=== PATIENT | male | born 1975 | race Caucasian/White ===

== ENCOUNTER 2017-05-06 23:29 | Emergency (ER) | payer BC, OTHER ==
[2017-05-06 23:41] VITALS: BP 165/97
[2017-05-06] MEDS ORDERED: Lidocaine 1% 10 ML MDV INJECT ONE (23:49)
[2017-05-06] MEDS ORDERED: Doxycycline 100 MG Cap PO ONE (23:49)
--- NOTE | 2017-05-06 23:51 | EDM.PDOC ---
ED HPI GENERAL MEDICAL PROBLEM - General Chief Complaint: Wound Recheck Stated Complaint: HAD SURGERY AND THE WOUND IS OPEN Time Seen by Provider: 05/06/17 23:45 Source of Information: Reports: Patient History Limitations: Reports: No Limitations - History of Present Illness INITIAL COMMENTS - FREE TEXT/NARRATIVE: 41-year-old male presents to the ED with wound dehiscence of surgical wound right lateral neck. Patient had a sebaceous cyst or tumor removed from this area on Wednesday, May 03. Tonight the wound was quite puffy and when he touched it it opened up and drained a large amount of serosanguineous fluid. The wound unfortunately dehisced in its entire length 2.5 cm. It is gaping approximately 6 mm. Therefore the wound will need to be reclosed with sutures. 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 Neck Pain Score (Numeric/FACES): 6 - Related Data Allergies Allergy/AdvReac Type Severity Reaction Status Date / Time NSAIDS (Non-Steroidal AdvReac Diarrhea Verified 05/06/17 23:41 Anti-Inflamma tramadol AdvReac Headache Verified 05/06/17 23:41 Home Meds: Home Meds Dextroamphetamine/Amphetamine [Amphetamine Salts] 15 mg PO DAILY 07/23/14 [ History] Lisdexamfetamine [Vyvanse] 30 mg PO DAILY 07/23/14 [History] Cholecalciferol (Vitamin D3) [Vitamin D3] 0 mg PO DAILY 06/25/15 [History] oxyCODONE HCl [Oxycodone HCl] 5 mg PO Q6H PRN 06/25/15 [History] Doxycycline [Vibramycin] 100 mg PO Q12HR #14 cap 05/06/17 [Rx] Past Medical History Other HEENT History: hearing loss L) ear. 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 Genitourinary History: Reports: Renal Calculus Musculoskeletal History: Reports: Other (See Below) Other Musculoskeletal History: vertebra fx Neurological History: Reports: Migraines Psychiatric History: Reports: ADHD, Anxiety, Depression Dermatologic History: Reports: Other (See Below) Other Dermatologic History: benign tumor removed from neck - Past Surgical History Musculoskeletal Surgical History: Reports: Shoulder Replacement, Other (See Below) Other Musculoskeletal Surgeries/Procedures:: knee surgery Social & Family History - Tobacco Use Smoking Status *Q: Current Every Day Smoker Years of Tobacco use: 20 Packs/Tins Daily: 0.5 Used Tobacco, but Quit: No Second Hand Smoke Exposure: Yes - Caffeine Use Caffeine Use: Reports: Soda - Alcohol Use Days Per Week of Alcohol Use: 0 Number of Drinks Per Day: 0 Total Drinks Per Week: 0 - Recreational Drug Use Recreational Drug Use: No Drug Use in Last 12 Months: No - Living Situation & Occupation Living situation: Reports: Occupation: Employed ED ROS GENERAL - Review of Systems Review Of Systems: See Below Constitutional: Denies: Fever, Chills, Malaise, Fatigue, Decreased Appetite, Weight Loss HEENT: Reports: No Symptoms Respiratory: Reports: No Symptoms Cardiovascular: Reports: No Symptoms Endocrine: Reports: No Symptoms GI/Abdominal: Reports: No Symptoms : Reports: No Symptoms ED EXAM, SKIN/RASH Exam: See Below Exam Limited By: No Limitations General Appearance: Alert, WD/WN, Anxious, Mild Distress Head: Atraumatic, Normocephalic Neck: Other (Surgical wound right lateral neck horizontal incision open in its length of 2.5 cm. Underlying Vicryl sutures are noted. Wound is gaping approximate 6 mm in its entirety.) Respiratory/Chest: No Respiratory Distress, Lungs Clear, Normal Breath Sounds, No Accessory Muscle Use, Chest Non-Tender Cardiovascular: Normal Peripheral Pulses ( It appears clear without any active drainage at this time), Regular Rate, Rhythm, No Edema, No Gallop, No Murmur ED WOUND PROCEDURES - Laceration/Wound Repair Right Middle Lateral Neck Laceration/Wound Length In cm: 2.5 Appearance: Subcutaneous (Surgical wound that has dehisced was repaired.), Clean Distal NVT: Neuro & Vascular Intact Anesthetic Type: Local Local Anesthesia - Lidocaine (Xylocaine): 1% Plain Skin Prep: Chlorhexidine (Hibiciens), Saline Wound Exploration, Debridement, Revision: Wound Explored (Removed part of the underlying Vicryl subcutaneous running suture as it was hanging the wound.) Suture Size: 4-0 # of Sutures: 6 Suture Type: Nylon, Interrupted, Running Course - Vital Signs Last Recorded V/S: Last Vital Signs Temp 36.1 C 05/06/17 23:36 Pulse 100 05/06/17 23:36 Resp 18 05/06/17 23:36 BP 165/97 H 05/06/17 23:36 Pulse Ox 96 05/06/17 23:36 - Orders/Labs/Meds Meds: Medications Discontinued Medications Generic Name Dose Route Start Last Admin Trade Name Colton PRN Reason Stop Dose Admin Doxycycline Hyclate 200 mg 05/06/17 23:49 05/06/17 23:53 Vibramycin PO 05/06/17 23:50 200 mg ONETIME ONE Administration Lidocaine HCl 10 ml 05/06/17 23:49 05/06/17 23:53 Xylocaine 1% INJECT 05/06/17 23:50 10 ml ONETIME ONE Administration - Radiology Interpretation Free Text/Narrative:: Evaluation in the emergent tonight in regards to wound breakdown which we call dehiscence of the surgical wound right lateral neck. Drained a copious quantity of serosanguineous material which is not uncommon for fluid to collect under a surgical wound in the neck. Since the wound is open in its entirety and gaping approximate 5 mm or more it was sutured under local anesthetic 5 to provide wound closure. He will be covered with antibiotics to prevent secondary wound infection. Doxycycline 100 mg twice daily for the next 7 days. Follow-up as needed. Sutures will need to be removed in 10 days' time. - Re-Assessments/Exams Free Text/Narrative Re-Assessment/Exam: 05/07/17 00:43 2.5 cm laceration right lateral neck was cleansed and then sutured under local anesthetic 6 with 4-0 Ethilon suture. He'll be covered with antibiotic doxycycline 200 mg or given in the ED and he'll take 100 mg twice daily for another 7 days to prevent secondary wound infection. Adequate pain medication at home .Sutures will need to be removed in 10 days' time. Departure - Departure Time of Disposition: 00:41 Disposition: Home, Self-Care 01 Condition: Fair Clinical Impression: Wound dehiscence, surgical Qualifiers: Encounter type: initial encounter Qualified Code(s): T81.31XA - Disruption of external operation (surgical) wound, not elsewhere classified, initial encounter - Discharge Information Prescriptions: Doxycycline [Vibramycin] 100 mg PO Q12HR #14 cap Referrals: Tiara Murcia NP [Primary Care Provider] - Forms: ED Department Discharge Additional Instructions: Evaluation in the emergent tonight in regards to wound dehiscence or surgical wound breakdown right lateral neck. Had a tumor or sebaceous cyst removed from this area on Wednesday, May 03. Tonight the wound opened up and drained serosanguineous fluid which is often a collection of blood and fluid under surgical wound. His open almost its entire length which is 2.5 cm. Decision made therefore to reclose the wound with external sutures. Was anesthetized and sutured 6 with 4-0 Ethilon sutures to provide wound closure. You were given initial dose of antibiotic doxycycline 200 mg in the ED and you should fill prescription tomorrow for same medication 100mg tablet twice daily for another 7 days to prevent secondary wound infection. Continue Tylenol 650 mg as needed every 6 hours for pain relief. Sutures will need to be removed in 10 days ' time. Apply topical antibiotic such as bacitracin or Polysporin to the wound every night at bedtime. Showering is okay.
== END 2017-05-07 00:54 | disposition home or self-care (01) ==
LOC: JD.ED 23:29
DX: T81.31XA Disruption of external operation (surgical) wound, not elsewhere classified, initial encounter (principal); F41.9 Anxiety disorder, unspecified; F32.9 Major depressive disorder, single episode, unspecified; F17.210 Nicotine dependence, cigarettes, uncomplicated; F90.9 Attention-deficit hyperactivity disorder, unspecified type; Z98.890 Other specified postprocedural states; Z96.612 Presence of left artificial shoulder joint; Z87.442 Personal history of urinary calculi; Z79.899 Other long term (current) drug therapy; Z88.8 Allergy status to other drugs, medicaments and biological substances; Z88.5 Allergy status to narcotic agent
CPT/HCPCS: 12020; 99283; A9270

== ENCOUNTER 2018-02-22 06:53 | Day surgery (SDC) | payer BC, OTHER ==
--- NOTE | 2018-02-16 00:10 | HP ---
DATE OF ADMISSION: 02/22/18 HISTORY OF PRESENT ILLNESS: This is the second orthopedic outpatient admission for surgery for this 42-year- old male who is being admitted with severe pain of the left wrist with positive loss of pail bailer strength and positive nerve conduction evaluation for a left median nerve compressive neuropathy - carpal tunnel syndrome. The patient has had continuous and increasing pain to the point now where he has lost significant pail bailer strength and has been scheduled for the surgical procedure. PAST MEDICAL HISTORY: Allergies: Tramadol and NSAIDs. CURRENT MEDICATIONS: Include Lisinopril, hydrochlorothiazide, Cymbalta, Adderall. He is on chronic pain oxycodone treatment. PAST MEDICAL HISTORY: The patient has a history of colitis, also right shoulder pain following several surgeries, high blood pressure. PAST SURGICAL HISTORY: Positive. He has had positive right carpal tunnel syndrome surgery, right knee surgery, left knee surgery, right shoulder surgery on multiple occasions. Notes no specific or significant anesthesia problems or complications. He has a negative bleeding history, negative blood clot history. SOCIAL HISTORY: The patient is a smoker of 1 pack per day. Alcohol: He denies using alcohol. PHYSICAL EXAMINATION: GENERAL: Today, reveals a well-developed, well-nourished 42-year-old male in [id number] distress. HEAD, EYES, EARS, NOSE, AND THROAT: Normocephalic. NECK: Supple. CHEST: Clear. COR: Regular rate. ABDOMEN: Soft. : Intact. EXTREMITIES: Examination of the left wrist reveals positive pain on direct carpal tunnel pressure. Positive Tinel's examination. Positive decreased pail bailer strength. ASSESSMENT: The overall impression is left carpal tunnel syndrome, severe with failed treatment. PLAN: The patient is to undergo left carpal tunnel ligament release. Procedure has been outlined to him. He understands the procedure and the risks and complications involved with it. Also, the postoperative treatment plan was outlined to him. He would need to be off work for approximately 3-4 weeks and he understands this. He has consented to surgery. [place] /[id number] GERARDO
[~2018-02-22 06:53] MED LIST: Lactated Ringers 1,000 ML IV SCH; Lidocaine 1%/Sod Bicarbonate in NS 8.4% 1 ML Syringe IDERM PRN; Sodium Chloride 0.9% 10 ML Syringe FLUSH PRN
[2018-02-22] MEDS ORDERED: Midazolam 1 MG/ML 2 ML SDV ONE (07:05)
[2018-02-22] MEDS ORDERED: fentaNYL 100 MCG/2 ML SDV ONE (07:05)
[2018-02-22] MEDS ORDERED: Ondansetron 4 MG/2 ML SDV ONE (07:05)
[2018-02-22] MEDS ORDERED: Propofol 200 MG/20 ML SDV ONE ×2 (07:05→08:12)
[2018-02-22] MEDS ORDERED: ceFAZolin 1 GM Vial ONE (07:06)
[2018-02-22] MEDS ORDERED: Lidocaine 1% 4 ML ONE (07:06)
[2018-02-22] MEDS ORDERED: Sodium Bicarbonate 8.4% 50 MEQ/50 ML SDV ONE (07:06)
[2018-02-22] MEDS ORDERED: Lidocaine 0.5% 50 ML SDV ONE (07:06)
--- NOTE | 2018-02-22 07:21 | PCM.PREANE ---
Preanesthetic Assessment - Anesthesia/Transfusion/Family Hx Anesthesia History: Prior Anesthesia Without Reaction Family History of Anesthesia Reaction: No Transfusion History: No Prior Transfusion(s) - Review of Systems General: No Symptoms Pulmonary: No Symptoms Cardiovascular: Dyspnea on Exertion Gastrointestinal: No Symptoms Neurological: Numbness (left hand) Other: Reports: None - Physical Assessment NPO Status Date: 02/21/18 NPO Status Time: 00:00 Pulse: 88 O2 Sat by Pulse Oximetry: 95 Respiratory Rate: 16 Blood Pressure: 140/84 Temperature: 36.3 C Height: 1.73 m Weight: 127.142 kg ASA Class: 2 Mental Status: Alert & Oriented x3 Dentition: Reports: Normal Dentition, [place](s) Thyro-Mental Finger Breadths: 3 Mouth Opening Finger Breadths: 3 ROM/Head Extension: Full Lungs: Clear to Auscultation, Normal Respiratory Effort Cardiovascular: Regular Rate, Regular Rhythm, No Murmurs - Lab Values: on chart - Allergies Allergies/Adverse Reactions: Allergies Allergy/AdvReac Type Severity Reaction Status Date / Time NSAIDS (Non-Steroidal AdvReac Diarrhea Verified 05/06/17 23:41 Anti-Inflamma tramadol AdvReac Headache Verified 05/06/17 23:41 - Blood Blood Available: No Product(s) Available: None - Anesthesia Plan Pre-Op Medication Ordered: None - Acknowledgements Anesthesia Type Planned: AILEEN Pt an Appropriate Candidate for the Planned Anesthesia: Yes Alternatives and Risks of Anesthesia Discussed w Pt/Guardian: Yes Pt/Guardian Understands and Agrees with Anesthesia Plan: Yes PreAnesthesia Questionnaire Other HEENT History: hearing loss L) ear. 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 Genitourinary History: Reports: Renal Calculus Musculoskeletal History: Reports: Other (See Below) Other Musculoskeletal History: vertebra fx Neurological History: Reports: Migraines Psychiatric History: Reports: ADHD, Anxiety, Depression Dermatologic History: Reports: Other (See Below) Other Dermatologic History: benign tumor removed from neck - Past Surgical History Musculoskeletal Surgical History: Reports: Shoulder Replacement, Other (See Below) Other Musculoskeletal Surgeries/Procedures:: knee surgery - SUBSTANCE USE Smoking Status *Q: Current Every Day Smoker Tobacco Use Within Last Twelve Months: Cigarettes Second Hand Smoke Exposure: Yes Days Per Week of Alcohol Use: 0 Number of Drinks Per Day: 0 Total Drinks Per Week: 0 Recreational Drug Use History: No - HOME MEDS Home Medications: Home Meds Dextroamphetamine/Amphetamine [Amphetamine Salts] 15 mg PO DAILY 07/23/14 [ History] Lisdexamfetamine [Vyvanse] 30 mg PO DAILY 07/23/14 [History] Cholecalciferol (Vitamin D3) [Vitamin D3] 0 mg PO DAILY 06/25/15 [History] oxyCODONE HCl [Oxycodone HCl] 5 mg PO Q6H PRN 06/25/15 [History] Doxycycline [Vibramycin] 100 mg PO Q12HR #14 cap 05/06/17 [Rx] - CURRENT (IN HOUSE) MEDS Current Meds: Current Medications Lactated Ringer's (Ringers, Lactated) 1,000 mls @ 125 mls/hr IV ASDIRECTED BANDAR Stop: 02/22/18 23:00 Lidocaine/Sodium Bicarbonate (Buffered Lidocaine 1% In Ns 8.4%) 0.25 ml IDERM ONETIME PRN PRN Reason: Prior to IV Start Stop: 02/22/18 18:00 Sodium Chloride (Saline Flush) 10 ml FLUSH ASDIRECTED PRN PRN Reason: Keep Vein Open Stop: 02/22/18 18:00 Discontinued Medications Cefazolin Sodium (Ancef) Confirm Administered Dose 3 gm .ROUTE .STK-MED ONE Stop: 02/22/18 07:07 Fentanyl (Sublimaze) Confirm Administered Dose 100 mcg .ROUTE .STK-MED ONE Stop: 02/22/18 07:06 Lidocaine HCl (Xylocaine-Mpf 1%) Confirm Administered Dose 4 mls @ as directed .ROUTE .STK-MED ONE Stop: 02/22/18 07:07 Lidocaine HCl (Xylocaine-Mpf 0.5%) Confirm Administered Dose 50 ml .ROUTE .STK- MED ONE Stop: 02/22/18 07:07 Midazolam HCl (Versed 1 Mg/Ml) Confirm Administered Dose 2 mg .ROUTE .STK-MED ONE Stop: 02/22/18 07:06 Ondansetron HCl (Zofran) Confirm Administered Dose 4 mg .ROUTE .STK-MED ONE Stop: 02/22/18 07:06 Propofol (Diprivan 20 Ml) Confirm Administered Dose 200 mg .ROUTE .STK-MED ONE Stop: 02/22/18 07:06 Sodium Bicarbonate (Sodium Bicarbonate 8.4%) Confirm Administered Dose 50 meq .ROUTE .iPeen-eCollect ONE Stop: 02/22/18 07:07
[2018-02-22] MEDS ORDERED: Acetaminophen/HYDROcodone 325-5 MG Tab PO PRN (07:43)
[2018-02-22] MEDS ORDERED: Dexamethasone 4 MG/ML SDV ONE (08:17)
[2018-02-22] MEDS ORDERED: Lactated Ringers 1,000 ML ONE (08:20)
--- NOTE | 2018-02-22 08:42 | PCM.POSTAN ---
POST ANESTHESIA ASSESSMENT - MENTAL STATUS Mental Status: Alert, Oriented - VITAL SIGNS Pulse Rate: 88 SaO2: 94 Resp Rate: 14 Blood Pressure: 126/68 Temperature: 36.4 C - RESPIRATORY Respiratory Status: Respiratory Rate WNL, Airway Patent, O2 Saturation Stable, Supplemental Oxygen - CARDIOVASCULAR CV Status: Pulse Rate WNL, Blood Pressure Stable - GASTROINTESTINAL GI Status: No Symptoms - PAIN Pain Score: 0 - POST OP HYDRATION Hydration Status: Adequate & Stable - OBSERVATIONS Free Text/Narrative:: no anesthesia complications noted
[2018-02-22 09:22] VITALS: BP 123/75
--- NOTE | 2018-02-23 07:15 | OR ---
DATE OF OPERATION: 02/22/2018 SURGEON: Kel Lovell MD PREOPERATIVE DIAGNOSIS: Severe carpal tunnel syndrome, left wrist, failed treatment. POSTOPERATIVE DIAGNOSIS: Severe carpal tunnel syndrome, left wrist, failed treatment. ANESTHESIA: Aruna block sedation. OPERATION PERFORMED: Left carpal tunnel ligament release. DESCRIPTION OF PROCEDURE: The patient was taken to the operative room in a supine position. He was placed under a light sedation anesthesia with a Aruna block being performed on the left upper extremity. After adequate anesthesia, the operation proceeded with an incision being placed approximately 1 cm distal to the flexion crease of the wrist, paralleling the radial aspect of the ring finger for approximately 1.5 cm. Penetration was made through the skin and subcutaneous tissues. The palmar fascia was encountered. This was lightly incised proximally and distally to expose the carpal ligament. The carpal ligament and tunnel were then entered, staying to the ulnar aspect of the median nerve by direct visualization. The ligament was then released by direct visualization proximally and distally. Then, the completion of the release proximally was carried out using the carpal tunnel mini-instruments. The release was carried out to approximately 1 inch above the flexion crease of the wrist and with inspection of the median nerve at that point found it to be intact. Good circulation returned underneath the area of the carpal ligament along with no fibrous bands remaining. Operation proceeded to the distal portion of the wound, where the ligament was then completely released down to the palmar fascia fat pad, and the tissues were lightly dissected away from the nerve itself to expose it. No fibrous bands remained on the nerve area. The vasa vasorum returned very nicely in the area of the thenar eminence region. The operation then proceeded with irrigation of the wound area and final inspection. Once that was satisfactory, no fibrous bands remained, the operation proceeded with closure of the skin with 2 horizontal 4-0 Prolene, and this was reinforced with 2 vertical 5-0 Prolene. The patient was placed in standard dressings and splint. He tolerated this whole procedure well and left the operating room in a stable condition to his room for recovery. ESTIMATED BLOOD LOSS: MMODAL /[id number]
== END 2018-02-22 09:10 | disposition home or self-care (01) ==
LOC: JD.SDS 06:53
PROVIDERS: ATTEND Specialist
DX: G56.02 Carpal tunnel syndrome, left upper limb (principal); I10 Essential (primary) hypertension; Z88.8 Allergy status to other drugs, medicaments and biological substances; Z79.899 Other long term (current) drug therapy; F17.210 Nicotine dependence, cigarettes, uncomplicated
CPT/HCPCS: 64721; 93005; J0690; J1100; J2001; J2250; J2405; J3010; J7120; J2704

== ENCOUNTER 2018-12-17 16:25 | Emergency (ER) | payer OTHER, BC ==
[2018-12-17] MEDS ORDERED: Ondansetron 4 MG/2 ML SDV IVPUSH ONE (16:37)
[2018-12-17] MEDS ORDERED: HYDROmorphone 1 MG/ML Syringe IVPUSH ONE ×2 (16:37→17:53)
[2018-12-17 16:43] VITALS: BP 132/88
[2018-12-17] MEDS ORDERED: Lactated Ringers 1,000 ML IV SCH (16:45)
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
[2018-12-17] MEDS ORDERED: Iopamidol 612 MG/ML 100 ML Bottle IVPUSH ONE (17:58)
[2018-12-17] MEDS ORDERED: Sodium Chloride 0.9% 10 ML Syringe FLUSH PRN (17:58)
[2018-12-17] MEDS ORDERED: Orphenadrine 100 MG Tab.ER PO STA (18:31)
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
--- NOTE | 2018-12-18 13:59 | CR ---
Right shoulder: Two views of the right shoulder were obtained. Comparison: No previous shoulder radiographic study, previous MRI right shoulder exam of 03/27/15. No discrete fracture or other bony abnormality is appreciated. Impression: 1. No abnormality is appreciated on two-view right shoulder study. Diagnostic code #1
--- NOTE | 2018-12-18 13:59 | CT ---
Head CT Technique: Multiple axial sections through the brain were obtained. Intravenous contrast was not-utilized. Comparison: No prior intracranial imaging. Findings: Ventricles along with basal cisterns and sulci over the convexities are within normal limits for the patient's age. No abnormal parenchymal densities are seen. No evidence of intracranial hemorrhage. No midline shift or mass effect is seen. Bone window settings were reviewed which show no discrete calvarial abnormality. Moderate mucosal thickening is noted within the ethmoid sinuses and right frontal sinus which is felt to be pre-existing. Impression: 1. Sinus findings felt to be pre-existing and chronic. 2. Nothing acute is appreciated on noncontrast head CT exam. Diagnostic code #2 I agree with preliminary report from [facility], finalized on 12/17/18, 6:29 PM Central Time
--- NOTE | 2018-12-18 13:59 | CR ---
Right knee: Two views of the right knee were obtained. Comparison: No prior right knee exam. Moderate medial joint space narrowing is seen. Osteophytes are noted off the medial and lateral joints as well as within the intercondylar femoral notch and off the anterior tibial spines. No joint effusion is seen. No acute fracture or other abnormality is identified. Impression: 1. Degenerative change as noted above. Nothing acute is appreciated on two-view right knee exam. Diagnostic code #2
--- NOTE | 2018-12-18 13:59 | CR ---
Left elbow: Two views of the left elbow were obtained. Comparison: No prior elbow study. Joint spaces are maintained. No joint effusion is seen. No acute fracture or other abnormality is appreciated. Impression: 1. Nothing acute is appreciated on two-view left elbow study. Diagnostic code #1
--- NOTE | 2018-12-18 14:21 | CT ---
CT chest Technique: Multiple axial sections were obtained from above the lung apices inferiorly through the lung bases. Intravenous contrast was utilized. Comparison: No prior chest CT is available. Findings: Mediastinum and hilar regions show normal size lymph nodes. Incidental calcified lymph nodes are noted within the right hilar region. Opacified great vessels show no discrete abnormality. No pericardial thickening is seen. No evidence of pulmonary contusion. Small calcified granuloma is seen posteriorly within the right lower lung. No pleural effusions are seen. Bone window settings were reviewed which show no discrete rib fracture. No acute thoracic spine abnormality is appreciated. Reconstructed sagittal images of the sternum appear to be intact. Impression: 1. Nothing acute is appreciated on CT study of the chest. Diagnostic code #2 I agree with preliminary report from [facility], finalized on 12/17/18, 6:[address] abdomen and pelvis Technique: Multiple axial sections were obtained from above the dome of the diaphragm inferiorly through the pubic symphysis. Intravenous contrast was utilized. Delayed images were also obtained to the bladder. No oral contrast has been given. Comparison: Prior CT abdomen and pelvis exam performed as a renal stone protocol dated 05/17/16 is available. Findings: Liver shows no focal abnormality. Possible mild fatty infiltration is noted within the liver. Spleen appears within normal limits. Adrenal glands show no nodule. Pancreas is within normal limits. Kidneys show symmetric contrast enhancement without hydronephrosis or mass. Aorta shows no abnormality. No retroperitoneal adenopathy or mesenteric abnormalities are seen. No pelvic mass or adenopathy is identified. Appendix is seen which is normal in size. Delayed images show contrast within the bladder with no dilatation of the distal ureters. Bone window settings were reviewed which show an incidental limbus type vertebra off the anterior and superior endplate of L1 which is old. Mild degenerative change is noted within the spine. No acute osseous abnormality is appreciated on bone window settings. Impression: 1. Incidental findings. Nothing acute is appreciated on CT study of the abdomen and pelvis. Diagnostic code #2 I agree with preliminary report from [facility], finalized on 12/17/18, 6:34 PM Central Time
--- NOTE | 2018-12-18 14:53 | CT ---
CT cervical spine Technique: Multiple axial sections were obtained from above C1 inferiorly to the mid T2 level. Reconstructed sagittal and coronal images were reviewed. Comparison: No prior cervical spine imaging. Findings: Degenerative change is noted between the dens and anterior arch of C1. Posterolateral spurring is noted on both sides at C3-C4. Mild scattered anterior endplate osteophytes are seen. Mild degenerative apophyseal change is noted within the lower cervical spine. No cervical spine fracture is seen. No abnormal subluxation is seen. Slight right-sided neural foraminal stenosis noted at C3-C4. Impression: 1. Mild degenerative change. 2. Nothing acute is appreciated on CT study of the cervical spine. Diagnostic code #2 I agree with preliminary report from [facility], finalized on 12/17/18, 6:32 PM Central Time
== END 2018-12-17 19:41 | disposition home or self-care (01) ==
LOC: JD.ED 16:25
DX: S16.1XXA Strain of muscle, fascia and tendon at neck level, initial encounter (principal); S46.911A Strain of unspecified muscle, fascia and tendon at shoulder and upper arm level, right arm, initial encounter; I10 Essential (primary) hypertension; F41.9 Anxiety disorder, unspecified; F32.9 Major depressive disorder, single episode, unspecified; E66.9 Obesity, unspecified; F17.210 Nicotine dependence, cigarettes, uncomplicated; Z88.5 Allergy status to narcotic agent; Z88.6 Allergy status to analgesic agent; Z79.899 Other long term (current) drug therapy; W00.0XXA Fall on same level due to ice and snow, initial encounter
CPT/HCPCS: 36415; 70450; 71260; 72125; 73030; 73070; 73560; 74177; 80053; 85007; 85027; 85610; 85730; 96361; 96374; 96375; 96376; 99285; A9270; J1170; J2405; J7120; Q9967; 99284

== ENCOUNTER 2022-11-11 06:34 | Emergency (ER) | payer BC ==
[2022-11-11 06:46] VITALS: PULSE 60
[2022-11-11] MEDS ORDERED: Sodium Chloride 0.9% 10 ML Syringe FLUSH PRN ×2 (08:40→10:00)
[2022-11-11] MEDS ORDERED: Ondansetron 4 MG/2 ML SDV IVPUSH ONE (08:40)
[2022-11-11] MEDS ORDERED: Sodium Chloride 0.9% 1,000 ML IV STA (09:56)
[2022-11-11] MEDS ORDERED: Iopamidol 612 MG/ML 100 ML Bottle IVPUSH ONE (10:00)
[2022-11-11] MEDS ORDERED: Iopamidol 612 MG/ML 50 ML SDV IVPUSH ONE (10:00)
[2022-11-11] MEDS ORDERED: Ketorolac 30 MG/ML SDV IVPUSH ONE (10:30)
[2022-11-11 12:05] VITALS: BP 122/87
== END 2022-11-11 12:05 | disposition home or self-care (01) ==
LOC: JD.ED 06:34
DX: N20.0 Calculus of kidney (principal); R31.9 Hematuria, unspecified; I10 Essential (primary) hypertension; K21.9 Gastro-esophageal reflux disease without esophagitis; F17.210 Nicotine dependence, cigarettes, uncomplicated; E66.9 Obesity, unspecified; Z88.5 Allergy status to narcotic agent; Z88.8 Allergy status to other drugs, medicaments and biological substances; Z79.899 Other long term (current) drug therapy; Z68.42 Body mass index [BMI] 45.0-49.9, adult
CPT/HCPCS: 36415; 74177; 80053; 81001; 85025; 96361; 96374; 96375; 99284; J1885; J2405; J3490; J7030; Q9967

== ENCOUNTER 2024-02-02 10:01 | Emergency (ER) | payer BC, OTHER ==
[2024-02-02] MEDS: Diazepam 5 MG Tab PO ONE (11:07)
[2024-02-02 13:14] VITALS: BP 125/63; PULSE 66
== END 2024-02-02 13:14 | disposition home or self-care (01) ==
LOC: JD.ED 10:01
DX: M54.50 Low back pain, unspecified (principal); R32 Unspecified urinary incontinence; I10 Essential (primary) hypertension; E66.9 Obesity, unspecified; Z88.8 Allergy status to other drugs, medicaments and biological substances; Z88.6 Allergy status to analgesic agent; Z79.899 Other long term (current) drug therapy; Z68.42 Body mass index [BMI] 45.0-49.9, adult
CPT/HCPCS: 72148; 99283; A9270